=== PATIENT | male | born 1955 | race Caucasian/White ===

== ENCOUNTER 2016-11-01 16:39 | Inpatient (IN) | payer OTHER ==
[~2016-11-01] VITALS: Ht 182.9 cm; Wt 103.2 kg
[~2016-11-01 16:39] MED LIST: AXIRON30 MG/1.5 INJ; DEPAKENE250 MG PO; DIOVAN320 MG PO; NORCO 10/325 TA1 TA1 PO; NORVASC10 MG PO; PRAVACHOL80 MG PO; PROPRANOLOL HCL20 MG PO; ZETIA10 MG PO; ZYLOPRIM300 MG PO
--- NOTE | 2016-11-01 17:30 | NUR ---
IV TO RIGHT AC STARTED AT THIS TIME X 1 STICK. PATIENT TOLERATED WITH SMALL AMOUNT OF PAIN. PATIENT TO CT.
[2016-11-01] MEDS ORDERED: LIPITOR40 MG PO (18:03)
[2016-11-01] MEDS ORDERED: CYCLOBENZAPRINE10 MG PO (18:05)
--- NOTE | 2016-11-01 18:45 | NUR ---
PATIENT SITTING UP IN BED EATING WITH NO COMPLAINTS. WAITING FOR BLD CX TO BE DRAWN TO START IV ABX. FAMILY AT BEDSIDE. CALL LIGHT WITHIN REACH.
[2016-11-01 18:59] LABS: APPEARANCE CLEAR (CLEAR); BACTERIA FEW /hpf (NONE SEEN); BILIRUBIN NEGATIVE (NEGATIVE); COLOR YELLOW (YELLOW); GLUCOSE NEGATIVE (NEGATIVE); KETONE NEGATIVE (NEGATIVE); LEUKOCYTE ESTERASE NEGATIVE (NEGATIVE); NITRITE NEGATIVE (NEGATIVE); PROTEIN TRACE mg/dL (NEGATIVE); RED CELLS - URINE 0-5 /hpf (0-5); SPECIFIC GRAVITY 1.015 (1.005-1.020); UROBILINOGEN NORMAL (NORMAL); WHITE CELLS - URINE OCC /hpf (0-5)
[2016-11-01 20:19] LABS: BASOPHILS 0.3 % (0.0-2.0); EOSINOPHILS 1.2 % (0-7); HEMATOCRIT 46.7 % (42.0-54.0); IMMATURE GRANULOCYTES 0.3 % (0-5); LYMPHOCYTES 30.9 % (15-50); MCH 31.1 pg (26.0-34.0); MCHC 32.1 g/dL (31.0-37.0); MCV 96.9 fL (80.0-100.0); MEAN PLATELET VOLUME 11.8 fL (7.4-10.4); MONOCYTES 14.5 % (2-11); NEUTROPHILS 52.8 % (40-80); PLATELET COUNT 98 10x3/uL (130-400); RBC 4.82 10x6/uL (4.20-6.10); RDW 13.5 % (11.5-14.5); WBC 3.5 10x3/uL (4.8-10.8)
[2016-11-01 20:20] LABS: APTT 23.5 SECONDS (22.8-39.4); INR 1.01 (0.85-1.17); PROTIME 13.1 SECONDS (11.6-15.0)
[2016-11-01 20:21] LABS: D-DIMER-QUANTITATIVE 1.92 ug/mLFEU (0.20-0.54)
[2016-11-01 20:23] LABS: ALBUMIN 3.4 g/dL (3.4-5.0); ANION GAP 15.6 mmol/L (8-16); BILIRUBIN - TOTAL 0.62 mg/dL (0.2-1.3); CALCIUM 8.5 mg/dL (8.5-10.1); CARBON DIOXIDE 22.8 mmol/L (21.0-32.0); CREATININE - SERUM 1.7 mg/dL (0.6-1.3); POTASSIUM - SERUM 4.4 mmol/L (3.5-5.1); PROTEIN - SERUM 6.8 g/dL (6.4-8.2)
[2016-11-01 20:54] LABS: PLATELET ESTIMATE DECREASED
[2016-11-01 22:00] VITALS: BP 116/67
[2016-11-01 22:14] VITALS: BP 141/93; Ht 182.9 cm; Wt 103.2 kg
[2016-11-02 07:03] LABS: BASOPHILS 0.2 % (0.0-2.0); HEMATOCRIT 44.6 % (42.0-54.0); HEMOGLOBIN 14.4 g/dL (13.5-17.5); IMMATURE GRANULOCYTES 0.2 % (0-5); LYMPHOCYTES 34.2 % (15-50); MCHC 32.3 g/dL (31.0-37.0); MCV 96.1 fL (80.0-100.0); MEAN PLATELET VOLUME 11.9 fL (7.4-10.4); MONOCYTES 16.3 % (2-11); NEUTROPHILS 48.1 % (40-80); PLATELET COUNT 95 10x3/uL (130-400); RBC 4.64 10x6/uL (4.20-6.10); RDW 13.5 % (11.5-14.5)
--- NOTE | 2016-11-02 08:00 | NUR ---
PATIENT RECEIVED ALERT IN HIGH MCCARTY POSITION. RESPIRATIONS EVEN AND UNLABORED. DENIES NEEDS. FAMILY AT BEDSIDE. SIDE RAILS UP X2. BED IN LOW POSITION. CALL LIGHT IN REACH.
--- NOTE | 2016-11-02 08:44 | NUR ---
ALERT IN HIGH MCCARTY POSITION. RESPIRATIONS EVEN AND UNLABORED. SCHEDULED MEDICATION ADMINISTERED. DENIES NEEDS. FAMILY AT BEDSIDE. SIDE RAILS UP X2. BED IN LOW POSITION. CALL LIGHT IN REACH.
[2016-11-02 09:05] VITALS: BP 114/76
[2016-11-02 11:59] VITALS: BP 128/74
--- NOTE | 2016-11-02 12:30 | NUR ---
ALERT IN BED EATING LUNCH. TOLERAING WELL. BED IN LOW POSITION. CALL LIGHT IN REACH. FAMILY PRESENT. SIDE RAILS UP X2
--- NOTE | 2016-11-02 14:35 | NUR ---
SITTING UP ON SIDE OF BED ALERT. NO SIGNS OF DISTRESS NOTED. CALL LIGHT IN REACH. BED IN LOW POSITION. FAMILY AT BEDSIDE.
[2016-11-02 15:40] VITALS: BP 138/73
--- NOTE | 2016-11-02 17:15 | NUR ---
PATIENT OFF FLOOR TO MRI VIA WHEELCHAIR
--- NOTE | 2016-11-02 18:10 | NUR ---
PATIENT BACK TO ROOM FROM MRI VIA WHEELCHAIR
--- NOTE | 2016-11-02 21:31 | NUR ---
PATIENT IS RESTING IN BED WITH AT BEDSIDE AND DENIES NEEDS AT THIS TIME. ADMINISTERED NIGHT MEDS AND PATIENT ASKED FOR A PAIN PILL WHEN IT IS DUE. BED IN LOWEST POSITION AND CALL LIGHT WITHIN REACH. ENCOURAGED THE PATIENT TO CALL IF HE HAS FURTHER NEEDS.
--- NOTE | 2016-11-03 04:29 | NUR ---
EMY SANZ AT BEDSIDE DRAWING BLOOD. PATIENT DENIES NEEDS AT THIS TIME. BED IN LOWEST POSITION AND CALL LIGHT WITHIN REACH. ENCOURAGED PATIENT TO CALL IF SHE HAS NEEDS.
[2016-11-03 05:31] LABS: BASOPHILS 0.5 % (0.0-2.0); EOSINOPHILS 2.6 % (0-7); HEMATOCRIT 44.5 % (42.0-54.0); HEMOGLOBIN 14.2 g/dL (13.5-17.5); LYMPHOCYTES 43.5 % (15-50); MCH 30.8 pg (26.0-34.0); MCHC 31.9 g/dL (31.0-37.0); MCV 96.5 fL (80.0-100.0); MEAN PLATELET VOLUME 11.3 fL (7.4-10.4); MONOCYTES 14.2 % (2-11); NEUTROPHILS 39.2 % (40-80); PLATELET COUNT 103 10x3/uL (130-400); RBC 4.61 10x6/uL (4.20-6.10); RDW 13.5 % (11.5-14.5); WBC 3.8 10x3/uL (4.8-10.8)
[2016-11-03 05:54] LABS: ANION GAP 12.1 mmol/L (8-16); CALCIUM 8.4 mg/dL (8.5-10.1); CARBON DIOXIDE 27.3 mmol/L (21.0-32.0); CREATININE - SERUM 1.5 mg/dL (0.6-1.3); POTASSIUM - SERUM 4.4 mmol/L (3.5-5.1)
[2016-11-03 06:11] LABS: HELICOBACTER PYLORI IGG POSITIVE (NEGATIVE)
--- NOTE | 2016-11-03 07:10 | NUR ---
PATIENT RECEIVED ALERT IN BED. RESPIRATIONS EVEN AND UNLABORED. DENIES NEEDS. SIDE RAILS UP X2. BED IN LOW POSITION. CALL LIGHT IN REACH.
[2016-11-03 08:14] VITALS: BP 108/73
--- NOTE | 2016-11-03 08:30 | NUR ---
PATIENT SITTING UP ON SIDE OF BED ALERT AND EATING BREAKFAST. TOLERATING WELL. SCHEDULED MEDICATION ADMINISTERED. SIDE RAILS UP X2. BED IN LOW POSITION. CALL LIGHT IN REACH.
[2016-11-03] MEDS ORDERED: LEVAQUIN750 MG PO (11:09)
--- NOTE | 2016-11-03 11:40 | NUR ---
IV D/C WITH CATH TIP INTACT. SITE COVERED WITH GAUZE AND BANDAID. D/C TEACHING PROVIDED. PATIENT STATES UNDERSTANDING.
--- NOTE | 2016-11-03 11:45 | NUR ---
PATIENT D/C HOME WITH FAMILY. TRANSFERRED DOWNSTAIRS VIA WHEELCHAIR WITH STAFF
--- NOTE | 2016-11-04 08:09 | DS ---
PATIENT:JAREN MARTI :59 MEDICAL RECORD: [id number] DISCHARGE SUMMARY ADMISSION DATE: 11/01/16 DISCHARGE DATE: 11/03/16 DATE OF ADMISSION: 11/01/2016. DATE OF DISCHARGE: 11/03/2016. ADMISSION DIAGNOSIS: Diffuse abdominal pain with fever and chills, failed outpatient therapy. DISCHARGE DIAGNOSES: Abdominal pain, bilateral flank pain, thoracic pain, fever and chills, hematuria, also history of seizure disorder, and thrombocytopenia. PROCEDURES: CT of the abdomen, no acute findings seen in the abdomen, punctate nonobstructing renal stones bilaterally, 2 small cysts lower pole of the right kidney, one hyperdense suggesting blood products. Recommend urology eval or ultrasound eval in the next 3 months. MRI thoracic spine, nonspecific fatty degenerative changes noted involving the anterior aspects superior and inferior endplates of T6 through T9. No focal levels, disc bulge or disc herniation. No spinal cord or neural foraminal stenosis. CONSULTS: Dr. Rider, hematology, for thrombocytopenia. HOSPITAL COURSE: The patient was admitted after failed outpatient therapy, antibiotics, pain regimen. Had hematuria, flank pain, and abdominal pain. No significant findings. He was empirically started on antibiotics. He had significant lower thoracic pain. MRI was obtained as noted above. No significant findings. The patient's symptoms have resolved. He has remained afebrile. We will continue empiric antibiotics, Levaquin 750 mg q.48 hours with his chronic kidney disease for 5 additional doses. He will follow up with his primary, Dr. Valerio, this week. The patient is anxious to go home. Discharged in significantly improved condition. PHYSICAL EXAMINATION: VITAL SIGNS ON DISCHARGE: Temperature 98.4, blood pressure 108/73, heart rate 71, respirations 16, and O2 sats 95% on room air. HEART: Regular rate and rhythm. LUNGS: Clear. ABDOMEN: Soft and nontender. EXTREMITIES: Present times 4, no edema. NEUROLOGIC: Intact. He is ambulating independently. LABORATORY DATA: CBC on discharge, white count 3.8, hemoglobin 14.2, hematocrit 44.5, and platelets 103. Chemistry shows a sodium of 140, potassium 4.4, chloride 105, bicarbonate 27.3, BUN 23, and creatinine 1.5. His ____ antibody was positive. We will follow up with Dr. Valerio and complete workup as outpatient. He is anxious to go home. He is discharged home in significantly improved condition. DISCHARGE MEDICATIONS: Per med rec. TRANSINT:[id number] Voice Confirmation ID: [id number] DOCUMENT ID: [id number] DISCHARGE SUMMARY REPORT [id number] JAREN MARTI, HILARIO BAUM at 0809 CC: [id number] DICTATION DATE: 11/03/16 111 [employer] COLLECTION AGENT: 11/03/16 2236 DIS IN 11/03/[address] [id number]
[2016-11-05 11:18] LABS: HEPATITIS C ANTIBODY <0.1 (0.0-0.9)
== END 2016-11-03 11:58 | disposition home or self-care (01) | DRG 552 ==
LOC: D.MS 16:39
PROVIDERS: Family Medicine; Internal Medicine Hematology & Oncology; ADMIT Family Medicine
DX: M54.6 Pain in thoracic spine (principal); R50.9 Fever, unspecified; R10.9 Unspecified abdominal pain; D69.6 Thrombocytopenia, unspecified; D75.1 Secondary polycythemia; N28.1 Cyst of kidney, acquired; R31.9 Hematuria, unspecified